=== PATIENT | male | born 2005 | race African-American/Black ===

== ENCOUNTER 2023-09-16 18:03 | Emergency (ER) | payer SELFPAY ==
[2023-09-16 18:12] VITALS: BP 143/95; PULSE 82; RESP 20; TEMP 98.6; BMI 32.8
[2023-09-16] MEDS ORDERED: IBUPROFEN 400 MG TABLET (FP) PO ONE (19:51)
[2023-09-16] MEDS ORDERED: ACETAMINOPHEN 500 MG TABLET (FP) ONE (19:52)
[2023-09-16] MEDS: IBUPROFEN 400 MG TABLET (FP) PO ONE (19:56)
[2023-09-16] MEDS: ACETAMINOPHEN 500 MG TABLET (FP) PO ONE (19:57)
[2023-09-16] MEDS: MAG HYDROX/ALH/SMC/DPHA/LIDO 240 ML MOUTHWASH MM ONE (20:47)
[2023-09-17] MEDS ORDERED: MAG HYDROX/ALH/SMC/DPHA/LIDO 240 ML MOUTHWASH MM SCH
[2023-09-17] MEDS ORDERED: MAG HYDROX/ALH/SMC/DPHA/LIDO 240 ML MOUTHWASH MM ONE (20:14)
== END 2023-09-16 20:56 | disposition home or self-care (01) ==
LOC: JERFT 18:03
DX: R05.9 Cough, unspecified (principal); J00 Acute nasopharyngitis [common cold]; Z20.822 Contact with and (suspected) exposure to COVID-19
CPT/HCPCS: 0241U-QW; 87651; 99283-25

== ENCOUNTER 2025-01-31 18:18 | Emergency (ER) | payer OTHER ==
[2025-01-31 18:24] VITALS: BP 128/92; PULSE 70; RESP 18; TEMP 98.1; BMI 28.5
== END 2025-01-31 19:07 | disposition home or self-care (01) ==
LOC: JERFT 18:18
DX: R04.0 Epistaxis (principal)
CPT/HCPCS: 99283-25